=== PATIENT | female | born 1990 ===

== ENCOUNTER 2017-09-12 13:05 | Inpatient (IN) | payer OTHER ==
[~2017-09-12] VITALS: Ht 160 cm; Wt 70.3 kg
[~2017-09-12 13:05] MED LIST: ATABEX EC CAPL1 EACH PO; CARAFATE1 GM PO; INFED50 MG/ML IJ; OMEPRAZOLE40 MG PO; PROFERRIN12 MG PO; ZANTAC300 MG PO
== END 2017-10-11 15:25 | disposition home or self-care (01) | DRG 775 ==
LOC: OB/GYN 10-09 07:42 → LDR 10-09 07:42 → OB/GYN 10-09 13:27 → LDR 10-11 13:03 → OB/GYN 10-11 15:25
PROC: 0KQM0ZZ Repair Perineum Muscle, Open Approach (ICD-10-PCS; principal; 2017-10-09)
PROC: 10E0XZZ Delivery of Products of Conception, External Approach (ICD-10-PCS; 2017-10-09)
PROC: 4A1HXCZ Monitoring of Products of Conception, Cardiac Rate, External Approach (ICD-10-PCS; 2017-10-09)
PROC: 4A033R1 Measurement of Arterial Saturation, Peripheral, Percutaneous Approach (ICD-10-PCS; 2017-10-09)
DX: O70.1 Second degree perineal laceration during delivery (principal); Z37.0 Single live birth; O99.013 Anemia complicating pregnancy, third trimester; Z3A.39 39 weeks gestation of pregnancy

== ENCOUNTER 2018-08-06 00:34 | Emergency (ER) | payer OTHER ==
[~2018-08-06] VITALS: Ht 160 cm; Wt 49.9 kg
== END 2018-08-06 07:50 ==
LOC: ER 00:34
DX: R10.2 Pelvic and perineal pain (principal); Z34.81 Encounter for supervision of other normal pregnancy, first trimester

== ENCOUNTER 2018-08-17 14:43 | Emergency (ER) | payer OTHER ==
[~2018-08-17] VITALS: Ht 157.5 cm; Wt 47.2 kg
[2018-08-18] MEDS ORDERED: ZOFRAN4 MG (16:22)
== END 2018-08-17 21:51 | disposition home or self-care (01) ==
LOC: ER 14:43
DX: N39.0 Urinary tract infection, site not specified (principal)

== ENCOUNTER → 2018-08-18 | Emergency (ER) | payer OTHER ==
[~2018-08-18] VITALS: Ht 160 cm; Wt 47.2 kg
[~2018-08-18] MED LIST changes: +ZOFRAN4 MG
== END | disposition home or self-care (01) ==
LOC: ER 15:42
DX: O21.8 Other vomiting complicating pregnancy (principal); Z34.81 Encounter for supervision of other normal pregnancy, first trimester

== ENCOUNTER 2018-08-23 15:00 | Inpatient (IN) | payer OTHER ==
[~2018-08-23] VITALS: Ht 160 cm; Wt 47.6 kg
== END 2018-08-30 10:43 | disposition home or self-care (01) | DRG 832 ==
LOC: OB/GYN 15:00
PROVIDERS: ADMIT Obstetrics & Gynecology
DX: O21.1 Hyperemesis gravidarum with metabolic disturbance (principal); O23.31 Infections of other parts of urinary tract in pregnancy, first trimester; E86.0 Dehydration; B96.89 Other specified bacterial agents as the cause of diseases classified elsewhere; Z34.81 Encounter for supervision of other normal pregnancy, first trimester

== ENCOUNTER 2018-09-03 16:16 | Emergency (ER) | payer OTHER ==
[~2018-09-03] VITALS: Ht 160 cm; Wt 47.6 kg
== END 2018-09-03 22:04 | disposition home or self-care (01) ==
LOC: ER 16:16
DX: O21.0 Mild hyperemesis gravidarum (principal)

== ENCOUNTER 2018-12-21 21:26 | Outpatient (CLI) | payer OTHER | END 2018-12-22 14:00 | disposition home or self-care (01) | LOC: OBS/DEL 21:26 | DX: O26.852 Spotting complicating pregnancy, second trimester (principal); Z34.82 Encounter for supervision of other normal pregnancy, second trimester ==

== ENCOUNTER 2019-02-25 07:44 | Inpatient (IN) | payer OTHER ==
[2019-02-25] MEDS ORDERED: PRENATAL + DHA1 EAC1 PO (13:47)
[2019-02-25] MEDS ORDERED: IRON325 MG PO (13:48)
[2019-03-04] MEDS ORDERED: PROFERRIN-FORT1 EACH PO (08:42)
== END 2019-03-04 09:54 | disposition home or self-care (01) | DRG 833 ==
LOC: OB/GYN 07:44
PROVIDERS: ADMIT Obstetrics & Gynecology
PROC: 4A1HXCZ Monitoring of Products of Conception, Cardiac Rate, External Approach (ICD-10-PCS; principal; 2019-02-25)
DX: O99.013 Anemia complicating pregnancy, third trimester (principal); D64.89 Other specified anemias; K29.00 Acute gastritis without bleeding; Z34.83 Encounter for supervision of other normal pregnancy, third trimester

== ENCOUNTER 2019-04-18 18:27 | Emergency (ER) | payer OTHER ==
[~2019-04-18] VITALS: Ht 160 cm; Wt 62.6 kg
[~2019-04-18 18:27] MED LIST changes: +IRON325 MG PO; +PRENATAL + DHA1 EAC1 PO; +PROFERRIN-FORT1 EACH PO
== END 2019-04-18 20:45 | disposition home or self-care (01) ==
LOC: ER 18:27
DX: R50.9 Fever, unspecified (principal)